=== PATIENT | female | born 1970 | race Caucasian/White ===

== ENCOUNTER 2016-12-15 08:35 | Day surgery (SDC) | payer SELFPAY ==
[~2016-12-15 08:35] MED LIST: ACETAMINOPHEN 1000MG/100 ML PREMIX IV ONE; CEFAZOLIN 2 Gram 50 ML IVPB ONE; FAMOTIDINE 20MG TABLET PO ONE; MECLIZINE 25 MG TABLET PO ONE; METOCLOPRAMIDE 10 MG TABLET PO ONE
[2016-12-15 09:03] LABS: HEMATOCRIT 39.8 % (35.0-47.0); HEMOGLOBIN 13.5 gm/dl (11.6-16.0)
[2016-12-15] MEDS ORDERED: DIAZEPAM 5 MG TABLET PO PRN (13:40)
[2016-12-15] MEDS ORDERED: ONDANSETRON HCL IV 4 MG/2 ML VIAL IVP PRN ×2 (13:40→16:56)
[2016-12-15] MEDS ORDERED: MORPHINE SULFATE 5 MG/ML PFS IVP PRN ×3 (13:40)
[2016-12-15] MEDS ORDERED: DIAZEPAM 5 MG/1 ML TUBX IVP PRN (13:40)
[2016-12-15] MEDS ORDERED: HYDROCODONE/APAP 5/325MG TABLET PO PRN (13:40)
[2016-12-15] MEDS ORDERED: PROMETHAZINE HCL 25 MG/ML VIAL IVP ONE (14:20)
[2016-12-15] MEDS ORDERED: 0.9 % SODIUM CHLORIDE 100ML BAG IV ONE (14:20)
[2016-12-15] MEDS ORDERED: BUPIVACAINE 0.25% W/EPI MPF 30ML VIAL IVP ONE (14:20)
[2016-12-15] MEDS ORDERED: HYDROMORPHONE HCL 2 MG/ML VIAL IV ONE ×2 (14:20→14:27)
[2016-12-15] MEDS ORDERED: FENTANYL PF 0.25MG/5ML AMPUL IV ONE (14:27)
[2016-12-15] MEDS ORDERED: PROPOFOL 10 MG/ML VIAL IV ONE (14:27)
[2016-12-15] MEDS ORDERED: MIDAZOLAM HCL 2MG/2ML VIAL IV ONE (14:27)
[2016-12-15] MEDS ORDERED: ROCURONIUM BROMIDE 50MG/5ML VIAL IV ONE (14:27)
[2016-12-15] MEDS ORDERED: KETOROLAC 30 MG/ML VIAL IVP ONE (14:27)
[2016-12-15] MEDS ORDERED: DEXAMETHASONE 4 MG/ML 1ML VIAL IVP ONE (14:27)
[2016-12-15] MEDS ORDERED: SEVOFLURANE 250 ML INH ONE (14:27)
[2016-12-15] MEDS ORDERED: ONDANSETRON HCL IV 4 MG/2 ML VIAL IVP ONE (14:27)
[2016-12-15] MEDS ORDERED: LIDOCAINE 2% MDV (20MG/ML) 20ML VIAL IV ONE (14:27)
[2016-12-15] MEDS: RINGERS SOLUTION,LACTATED 1,000 ML IV SCH (17:44)
[2016-12-15] MEDS: SENNOSIDES/DOCUSATE SODIUM UD CAPSULE PO SCH ×2 (17:44→21:02)
[2016-12-15] MEDS: POLYETHYLENE GLY 17 GM PACKET PO SCH (17:44)
[2016-12-15] MEDS: CEFAZOLIN 1 Gram 50 ML IVPB SCH (17:44)
[2016-12-15] MEDS: HYDROCODONE/APAP 5/325MG TABLET PO PRN (18:08)
[2016-12-15] MEDS: BUSPIRONE 5 MG TABLET PO SCH (21:01)
[2016-12-15] MEDS ORDERED: PATIENT OWN MED: TRAZODONE 100 MG PO SCH (22:00)
[2016-12-15] MEDS ORDERED: QUETIAPINE 300 MG PO SCH (22:00)
[2016-12-15] MEDS ORDERED: LAMOTRIGINE 100 MG TABLET PO SCH (22:00)
[2016-12-16] MEDS: RINGERS SOLUTION,LACTATED 1,000 ML IV SCH (02:14)
[2016-12-16] MEDS: CEFAZOLIN 1 Gram 50 ML IVPB SCH ×2 (02:15→10:31)
[2016-12-16] MEDS: HYDROCODONE/APAP 5/325MG TABLET PO PRN ×2 (02:52→09:36)
[2016-12-16] MEDS: BUSPIRONE 5 MG TABLET PO SCH (09:46)
[2016-12-16] MEDS: POLYETHYLENE GLY 17 GM PACKET PO SCH (09:47)
[2016-12-16] MEDS: SENNOSIDES/DOCUSATE SODIUM UD CAPSULE PO SCH (09:48)
--- NOTE | 2016-12-17 09:42 | Operative Note ---
OPERATIVE REPORT DATE OF PROCEDURE: 12/15/2016. SURGEON: Wu Santoyo D.O. REFERRING PHYSICIAN: Radha Calvert P.A.-C. NOTE: This is a two-part report; see Dr. Ward' dictation for complete dictation. PROCEDURE: Abdominoplasty and umbilical herniorrhaphy. INDICATIONS: The patient is a 46-year-old female. She came to the office with a small umbilical hernia. She did desire an abdominoplasty at the same time, and therefore these cases were combined. Therefore, please see Dr. Ward' dictation for the full report. DESCRIPTION OF PROCEDURE: After Dr. Ward exposed the patient's abdominal wall, the patient had a hernia directly underlying the navel stalk. This was exposed and closed with #0 Ethibond with four interrupted sutures. It was noted that she had fairly significant diastasis which we fixed with the abdominoplasty as well. After the defect was closed, the case was turned back over to Dr. Ward for completion. She tolerated my part of the procedure well. Wu Santoyo D.O. Date Time JOB NUMBER: [id number] cc: Radha Calvert P.A.-C. [facility]ITALAkil
== END 2016-12-16 13:05 | disposition home or self-care (01) ==
LOC: SUR 08:35 → MEDSURG 14:16 → SUR 12-16 13:05
PROVIDERS: ATTEND Surgery
DX: K42.9 Umbilical hernia without obstruction or gangrene (principal)
CPT/HCPCS: 49585; 00830; 85018; 85014; 81025; 94761 ×2; J3490; J1885; J2405 ×2; J0690 ×3; J1170; J2270 ×2; J2550; J3360; J7120

== ENCOUNTER → 2016-12-15 | Day surgery (SDC) | payer SELFPAY ==
--- NOTE | 2017-01-01 09:31 | Operative Note ---
DATE OF SURGERY: 12/18/2016 PREOPERATIVE DIAGNOSES: 1. Umbilical hernia. 2. Abdominal wall deformity. 3. Abdominal wall lipodystrophy. 4. Abdominal wall diastasis. POSTOPERATIVE DIAGNOSES: 1. Umbilical hernia. 2. Abdominal wall deformity. 3. Abdominal wall lipodystrophy. 4. Abdominal wall diastasis. PROCEDURE: Panniculectomy with abdominal wall plication. Surgeon: Isaac Ward D.O. Anesthetic: General. Estimated Blood Loss: 100 mL. DRAINS: A 15 round Sreekanth. SPECIMENS: 1100 g of abdominal tissue. PROCEDURE: Patient was interviewed preoperatively. The operative plan was reviewed. She was marked in the standing position. She was then taken to the Operating Room with PAS stockings. After induction of uncomplicated general anesthesia, all pressure points were well padded and protected, we prepped and draped in the usual sterile manner. We circumscribed her umbilicus leaving it in a well-vascularized stalk and leaving the hernia directly beneath so it could be repaired by a general surgeon. We then raised the skin flap inferiorly up to the umbilicus. At this point a general surgeon came in, exposed and repaired the umbilical hernia. We then completed raising the flap to the xiphoid and costal margins in a suprafascial plane. It should be noted that she was significantly distended preoperatively and while she was sleep we could easily palpate a significant amount of stool in her colon. It should also be noted this was mentioned to her caregiver postoperatively so she could immediately begin on laxatives and stool softeners to prevent major constipations postoperatively. We then very carefully plicated from her xiphoid to her pubic bone using a looped 0 PDS. This significantly improved her contour. Upon completion of the plication we then very carefully placed just subfascial 0.5% Marcaine. We then sat her up 45 degrees, excised skin so that it was snug but not unduly tight. We placed a drain, secured it with nylon and then advanced from lateral to medial. Once we had the appropriate skin resection and good symmetry of the scar we then closed using interrupted and subcuticular 3-0 Monocryl. We then marked position for her umbilicus in the midline at the level of anterior-superior iliac spine, made a small heart-shaped ellipse and as expected the umbilicus was directly beneath. It was then secured with Monocryl sutures. Sterile dressings were applied. She tolerated the procedure well without complication. MD SUNNY Aquino
== END | disposition home or self-care (01) ==
LOC: SUR 12-03 14:36
PROVIDERS: ATTEND Plastic Surgery
DX: E88.1 Lipodystrophy, not elsewhere classified (principal); K42.9 Umbilical hernia without obstruction or gangrene